=== PATIENT | male | born 1985 | race Caucasian/White ===

== ENCOUNTER 2016-10-10 17:29 | Emergency (ER) | payer OTHER | END 2016-10-10 19:33 | disposition home or self-care (01) | LOC: ER 17:29 | DX: J06.9 Acute upper respiratory infection, unspecified (principal); M10.9 Gout, unspecified; M79.675 Pain in left toe(s); I10 Essential (primary) hypertension; Z79.899 Other long term (current) drug therapy; Z88.0 Allergy status to penicillin; Z88.1 Allergy status to other antibiotic agents | CPT/HCPCS: 36415; 84550; 96372; 99070; 99283-25 ==